=== PATIENT | female | born 1990 | race Caucasian/White ===

== ENCOUNTER 2017-03-13 09:02 | Emergency (ER) | payer BC ==
[2017-03-13 09:22] VITALS: BP 141/81
[2017-03-13] MEDS ORDERED: Cyclobenzaprine TAB* 10 MG PO ONE (10:15)
[2017-03-13] MEDS ORDERED: traMADol TAB* 50 MG PO ONE (10:15)
--- NOTE | 2017-03-13 10:15 | UC ---
Shoulder Pain HPI - HPI Summary HPI Summary: right shoulder and neck pain had an x-ray 2 years ago dx with calcific tendonitis resolved with physical therapy---no injury just awoke with the pain - History of Current Complaint Hx Obtained From: Patient Hx Last Menstrual Period: pt on mirena and states not getting a menses ?: No Onset/Duration: Sudden Onset Timing: Constant Severity Initially: Moderate Severity Currently: Moderate Location Of Pain: Is Discrete @ - right shoulder and above right scapula Pain Intensity: 8 Pain Scale Used: 0-10 Numeric Character: Aching, Throbbing, Spasmodic, Stiffness Aggravating Factor(s): Movement Alleviating Factor(s): Nothing Associated Signs And Symptoms: Positive: Negative Related History: Dominant Hand Right <Emma Hughes - Last Filed: 03/13/17 15:27> <Michelle Mcgowan - Last Filed: 03/14/17 08:30> - History of Current Complaint Chief Complaint: UCUpperExtremity Stated Complaint: IMMOBILE R SHOULDER Time Seen by Provider: 03/13/17 10:05 - Allergies/Home Medications Allergies/Adverse Reactions: Allergies Allergy/AdvReac Type Severity Reaction Status Date / Time No Known Allergies Allergy Verified 03/13/17 09:22 Home Medications: Home Medications Ibuprofen [Ibuprofen 200 MG] 800 mg PO PRN 03/13/17 [History] PMH/Surg Hx/FS Hx/Imm Hx Previously Healthy: Yes Other History Of: Negative For: Anticoagulant Therapy - Surgical History Surgical History: None - Family History Known Family History: Positive: None - Social History Occupation: Employed Full-time Lives: With Family Alcohol Use: None Substance Use Type: None Smoking Status (MU): Light Every Day Tobacco Smoker Type: Cigarettes Amount Used/How Often: < 1/2 PPD Length of Time of Smoking/Using Tobacco: since age 18 Have You Smoked in the Last Year: Yes - Immunization History Most Recent Influenza Vaccination: 2015 season Most Recent Tetanus Shot: 10/26/13 Most Recent Pneumonia Vaccination: n/a <Emma Hughes - Last Filed: 03/13/17 15:27> Review of Systems Constitutional: Negative Skin: Negative Eyes: Negative ENT: Negative Respiratory: Negative Cardiovascular: Negative Gastrointestinal: Negative Genitourinary: Negative Motor: Negative Neurovascular: Negative Musculoskeletal: Negative, Arthralgia - right shoulder, Decreased ROM - movement in all planes of movememnt Neurological: Negative Psychological: Negative Is Patient Immunocompromised?: No All Other Systems Reviewed And Are Negative: Yes <Emma Hughes - Last Filed: 03/13/17 15:27> Physical Exam Triage Information Reviewed: Yes Appearance: Well-Appearing, Pain Distress, Obese Vital Signs: Initial Vital Signs Temp 97.9 F 03/13/17 09:15 Pulse 80 03/13/17 09:15 Resp 16 03/13/17 09:15 BP 141/81 03/13/17 09:15 Pulse Ox 100 03/13/17 09:15 Vital Signs Reviewed: Yes Eye Exam: Normal Eyes: Positive: Conjunctiva Clear ENT Exam: Normal ENT: Positive: Normal ENT inspection, Hearing grossly normal, Pharynx normal. Negative: Nasal congestion, Nasal drainage, Trismus, Muffled voice, Hoarse voice , Dental tenderness, Sinus tenderness Dental Exam: Normal Neck exam: Normal Neck: Positive: Supple, Nontender, No Lymphadenopathy Respiratory Exam: Normal Respiratory: Positive: Chest non-tender, Lungs clear, Normal breath sounds, No respiratory distress, No accessory muscle use Cardiovascular Exam: Normal Cardiovascular: Positive: RRR, Pulses Normal, Brisk Capillary Refill Musculoskeletal Exam: Other Musculoskeletal: Positive: No Edema, Strength Limited @, ROM Limited @ Neurological Exam: Normal Neurological: Positive: Alert, Muscle Tone Normal Psychological Exam: Normal Psychological: Positive: Normal Response To Family Skin Exam: Normal <Emma Hughes - Last Filed: 03/13/17 15:27> Vital Signs: Initial Vital Signs Temp 97.9 F 03/13/17 09:15 Pulse 80 03/13/17 09:15 Resp 16 03/13/17 09:15 BP 141/81 03/13/17 09:15 Pulse Ox 100 03/13/17 09:15 <Michelle Mcgowan - Last Filed: 03/14/17 08:30> Shoulder Course/Dx - Course Assessment/Plan: pain med muscle relaxer, warm compress gentle exercise follow with pcp prn - Differential Dx/Diagnosis Provider Diagnoses: right neck strain, nicotine dependent, high blod pressure without diagnosis of hypertension <Emma Hughes - Last Filed: 03/13/17 15:27> Discharge <Emma Hughes - Last Filed: 03/13/17 15:27> <Michelle Mcgowan - Last Filed: 03/14/17 08:30> - Discharge Plan Condition: Stable Disposition: HOME Prescriptions: Cyclobenzaprine TAB* [Flexeril 10 MG TAB*] 10 mg PO TID PRN #15 tab PRN Reason: muscle pain/spasm traMADol TAB* [Ultram*] 25 mg PO Q6HR PRN #16 tab MDD 4 PRN Reason: pain not relieved by ibuprofen Patient Education Materials: How to Stop Smoking (ED), Spasmodic Torticollis ( ED), Hypertension (ED) Forms: *Work Release Referrals: Rodolfo Wilson MD [Primary Care Provider] - 2 Days Attestation Statement User Type: Provider - I was available for consult. This patient was seen by the RENA. The patient was not presented to, seen by, or examined by me. -Ljj <Michelle Mcgowan - Last Filed: 03/14/17 08:30>
== END 2017-03-13 10:52 | disposition home or self-care (01) ==
LOC: UCEAST 09:02
DX: S16.1XXA Strain of muscle, fascia and tendon at neck level, initial encounter (principal); R03.0 Elevated blood-pressure reading, without diagnosis of hypertension; F17.210 Nicotine dependence, cigarettes, uncomplicated; X58.XXXA Exposure to other specified factors, initial encounter
CPT/HCPCS: 99212; A9270-GY; G0463

== ENCOUNTER 2017-05-28 08:50 | Emergency (ER) | payer BC ==
[2017-05-28 09:10] VITALS: BP 149/78
--- NOTE | 2017-05-28 09:27 | UC ---
Respiratory Complaint HPI - HPI Summary HPI Summary: 2 WEEKS OF COUGH AND NASAL CONGESTION. YESTERDAY SX WORSENED. DEVELOPED HERNANDEZ, NAUSEA, SINUS PRESSURE, FEVER 100.3, CHILLS. - History of Current Complaint Stated Complaint: CHILLS SINUS ISSUE HEADACHE Time Seen by Provider: 05/28/17 09:00 Hx Obtained From: Patient Hx Last Menstrual Period: iud Onset/Duration: Gradual Onset, Lasting Weeks, Still Present Timing: Constant Severity Initially: Moderate Severity Currently: Moderate Pain Intensity: 0 Pain Scale Used: 0-10 Numeric Character: Cough: Nonproductive Aggravating Factors: Nothing Alleviating Factors: Nothing Associated Signs And Symptoms: Positive: Fever, Chills, URI, Nasal Congestion, Sinus Discomfort. Negative: Wheezing - Allergies/Home Medications Allergies/Adverse Reactions: Allergies Allergy/AdvReac Type Severity Reaction Status Date / Time Amoxicillin [From Augmentin] Allergy Itching Verified 05/28/17 09:02 Clavulanic Acid Allergy Itching Verified 05/28/17 09:02 [From Augmentin] Home Medications: Home Medications Escitalopram Oxalate [Lexapro 10 mg] 10 mg PO QPM 05/28/17 [History Confirmed ] Esomeprazole Magnesium [Heartburn Treatment 24 Ho] 20 mg PO QAM 05/28/17 [ History Confirmed 05/28/17] PMH/Surg Hx/FS Hx/Imm Hx Psychological History: Anxiety, Post Traumatic Stress Disorder Other History Of: Negative For: Anticoagulant Therapy - Surgical History Surgical History: None - Family History Known Family History: Positive: Hypertension - Social History Alcohol Use: None Substance Use Type: None Smoking Status (MU): Light Every Day Tobacco Smoker Type: Cigarettes Amount Used/How Often: < 1/2 PPD Length of Time of Smoking/Using Tobacco: since age 18 Have You Smoked in the Last Year: Yes - Immunization History Most Recent Influenza Vaccination: season Most Recent Tetanus Shot: 10/26/13 Most Recent Pneumonia Vaccination: n/a Review of Systems Constitutional: Fever, Chills, Fatigue ENT: Sore Throat, Nasal Discharge Respiratory: Cough Cardiovascular: Negative Gastrointestinal: Negative Musculoskeletal: Myalgia Neurological: Headache All Other Systems Reviewed And Are Negative: Yes Physical Exam Triage Information Reviewed: Yes Appearance: Well-Appearing, No Pain Distress, Well-Nourished Vital Signs: Initial Vital Signs Temp 98.2 F 05/28/17 09:05 Pulse 83 01/17/18 09:05 Resp 16 05/28/17 09:05 BP 149/78 05/28/17 09:05 Pulse Ox 98 05/28/17 09:05 Vital Signs Reviewed: Yes Eyes: Positive: Conjunctiva Clear ENT: Positive: Hearing grossly normal, Pharyngeal erythema, TMs normal, Tonsillar swelling - TONSIL STONE RIGHT TONSIL Neck: Positive: Supple, Nontender, No Lymphadenopathy Respiratory Exam: Normal Cardiovascular Exam: Normal Abdomen Description: Positive: Soft Musculoskeletal: Positive: No Edema Neurological: Positive: Alert Psychological: Positive: Normal Response To Family, Age Appropriate Behavior Skin: Negative: rashes UC Diagnostic Evaluation - Laboratory O2 Sat by Pulse Oximetry: 98 Diagnostic Studies Comment: RAPID INFLUENZA NEGATIVE Respiratory Course/Dx - Differential Dx/Diagnosis Provider Diagnoses: ACUTE SINUSITIS Discharge - Discharge Plan Condition: Stable Disposition: HOME Prescriptions: Doxycycline (Monohydrate) [Doxycycline Monohydrate] 1 cap PO BID #20 cap Patient Education Materials: Sinusitis (ED) Forms: *Work Release Referrals: Ana Maria TATUM,Letty Osawld [Physician Machine Stacker] - If Needed Additional Instructions: FLU TEST NEGATIVE. WILL COVER FOR SINUS INFECTION WITH ANTIBIOTICS. FOLLOW-UP WITH YOUR PCP IF YOU ARE NOT IMPROVING EXPECTED.
== END 2017-05-28 09:44 | disposition home or self-care (01) ==
LOC: UCEAST 08:50
DX: J01.90 Acute sinusitis, unspecified (principal); Z88.1 Allergy status to other antibiotic agents; F41.9 Anxiety disorder, unspecified; F43.10 Post-traumatic stress disorder, unspecified; F17.210 Nicotine dependence, cigarettes, uncomplicated
CPT/HCPCS: 87502; 99212; G0463

== ENCOUNTER 2017-10-06 11:11 | Emergency (ER) | payer BC ==
[2017-10-06 12:17] VITALS: BP 142/79
--- NOTE | 2017-10-06 12:23 | UC ---
Neck Pain HPI - HPI Summary HPI Summary: 27 yo female presents with neck and shoulder pain for the last 2 days. She tells me that she has a history of reocurring muscle spasms in her neck and shoulders. In the past has had to undergo many months of physical therapy to improve this. Currently is seeing a chiropractor and he has ordered cervical XRs which show a reversal of the normal cervical lordosis. Pt tells me that 2 days ago she "woke up" with this spasm in her neck and shoulder. Has been taking ibuprofen with no relief. Denies fever, chills, headache, dizziness, recent illness, numbness, tingling, or injury. - History of Current Complaint Chief Complaint: UCUpperExtremity Stated Complaint: L SIDED NECK AND SHOULDER PAIN Time Seen by Provider: 10/06/17 12:23 Hx Obtained From: Patient Hx Last Menstrual Period: murina Onset/Duration Of Injury/Symptoms: Days Mechanism Of Injury: No Known Trauma Timing: Constant Onset/Duration: Sudden Onset Severity: Severe Pain Intensity: 10 Pain Scale Used: 0-10 Numeric - Allergies/Home Medications Allergies/Adverse Reactions: Allergies Allergy/AdvReac Type Severity Reaction Status Date / Time amoxicillin [From Augmentin] Allergy Itching Verified 10/06/17 12:17 clavulanic acid Allergy Itching Verified 10/06/17 12:17 [From Augmentin] Home Medications: Home Medications Acetaminophen [Acetaminophen Extra Strength] 1,000 mg PO Q6H PRN 10/06/17 [ History Confirmed 10/06/17] Esomeprazole Magnesium [Nexium 24Hr] 20 mg PO DAILY 10/06/17 [History Confirmed 10/06/17] Fluticasone NASAL SPRAY 50MCG* [Flonase NASAL SPRAY 50MCG*] 2 spray BOTH NARES DAILY PRN 10/06/17 [History Confirmed 10/06/17] PMH/Surg Hx/FS Hx/Imm Hx Previously Healthy: Yes GI/ History: Gastroesophageal Reflux Psychological History: Anxiety Other History Of: Negative For: Anticoagulant Therapy - Surgical History Surgical History: None - Family History Known Family History: Positive: Hypertension, Diabetes - Social History Occupation: Employed Full-time Lives: With Family Alcohol Use: None Substance Use Type: None Smoking Status (MU): Light Every Day Tobacco Smoker Type: Cigarettes Amount Used/How Often: 7 sig/day Length of Time of Smoking/Using Tobacco: since age 18 Have You Smoked in the Last Year: Yes - Immunization History Most Recent Influenza Vaccination: season Most Recent Tetanus Shot: 10/26/13 Most Recent Pneumonia Vaccination: n/a Review Of Systems Constitutional: Positive: Negative Skin: Positive: Negative Eyes: Positive: Negative ENT: Positive: Negative Respiratory: Positive: Negative Cardiovascular: Positive: Negative Musculoskeletal: Positive: Other: - Neck pain. Shoulder pain. Neurological: Positive: Negative Psychological: Positive: Negative All Other Systems Reviewed And Are Negative: Yes Physical Exam - Summary Physical Exam Summary: GENERAL: NAD. Obese SKIN: No rashes, sores, or wounds. HEENT: Head: AT/NC Eyes: PERRLA. EOM intact. Conjunctiva clear without inflammation or discharge. Ears: Hearing grossly normal. TMs intact, no bulging, erythema, or edema. Nose: Nasal mucosa pink and moist. NTTP maxillary and frontal sinus. Throat: Posterior oropharynx without exudates, erythema, or tonsillar enlargement. Uvula midline. NECK: Supple. Nontender. No lymphadenopathy. CHEST: CTAB. No r/r/w. No accessory muscle use. Breathing comfortably and in no distress. CV: RRR. Without m/r/g. Pulses intact. Brisk cap refill. MSK: FROM in B/L UEs, pain in neck with flexion of left shoulder. Strength 4/5 on left due to pain. Marina Porter strength intact b/l. Neck has decreased ROM in all directions due to posterior pain. TTP over trapezius muscle. No vertebral tenderness. Negative brudzinski and Kernig sign. NEURO: A&Ox3. 3 word recall, remote, recent memory, ability to follow 2-step directions, and attention intact. CN II-XII grossly intact. Fuczaw-bu-lsqg are intact. Gait with normal base. Romberg: maintains balance, no pronator drift. Sensations intact C4-T1 B/L UEs. PSYCH: Age appropriate behavior. Triage Information Reviewed: Yes Vital Signs: Initial Vital Signs Temp 97.5 F 10/06/17 12:12 Pulse 75 10/06/17 12:12 Resp 16 10/06/17 12:12 BP 142/79 10/06/17 12:12 Pulse Ox 99 10/06/17 12:12 Neck Pain Course/Dx - Course Course Of Treatment: Suspect muscle spasm of trapezius. Pt was offered toradol IM in clinic today buy declined due to fear of needles. Will rx for flexeril and mobic - advised not to take NSAIDs with this. Referral to physical therapy. She is also requesting a referral to a neurosurgeon or orthopedic doctor as she has had many issues with her neck for years. - Differential Dx/Diagnosis Provider Diagnoses: Neck spasm Discharge - Sign-Out/Discharge Documenting (check all that apply): Discharge/Admit/Transfer - Discharge Plan Condition: Stable Disposition: HOME Prescriptions: Cyclobenzaprine TAB* [Flexeril 10 MG TAB*] 10 mg PO TID PRN #21 tab PRN Reason: Pain Meloxicam [Mobic] 7.5 mg PO BID #14 tab Patient Education Materials: Muscle Spasm (ED) Forms: *Work Release Referrals: Rodolfo Wilson MD [Primary Care Provider] - Ken Chavez MD [Medical Doctor] - As Soon As Possible Additional Instructions: If you develop a fever, shortness of breath, chest pain, new or worsening symptoms - please call your PCP or go to the ED. 1) DO NOT TAKE ibuprofen/advil or ther NSAIDs while taking meloxicam as these medications are related and may interact. 2) Please schedule a follow up with Neurosurgery and your PCP as soon as possible 3) Please call Physical therapy to schedule an appointment - Billing Disposition and Condition Condition: STABLE Disposition: HOME
== END 2017-10-06 12:47 | disposition home or self-care (01) ==
LOC: UCEAST 11:11
DX: M62.838 Other muscle spasm (principal); K21.9 Gastro-esophageal reflux disease without esophagitis; F41.9 Anxiety disorder, unspecified; Z88.1 Allergy status to other antibiotic agents; Z88.0 Allergy status to penicillin; F17.210 Nicotine dependence, cigarettes, uncomplicated
CPT/HCPCS: 99211; G0463

== ENCOUNTER 2017-12-02 17:23 | Emergency (ER) | payer BC ==
--- OUTSIDE RECORDS SUMMARY | 2017-12-02 17:27 | XMS REPORT ---
:1990 External Reference #:[id number] Author Organization [facility] Address [address] [place] [address] [place] [address] Phone [phone] Care Team Providers Name Role Phone Rodolfo Wilson MD Primary Care Physician Unavailable Payers Type Date Identification Numbers Payment Provider Subscriber Commercial Policy Number: [id number] [employer] Eddie Mak PayID: [id number] [address] [address] [place] [address] Problems Description No Information Family History Date Family Member(s) Problem(s) Comments General No Current Problems Siblings 4 Social History Type Date Description Comments Marital Status Lives With Occupation Currently Working Out right now due to neck pain Insurance [employer] ETOH Use Denies alcohol use Smoking Patient is a current smoker, smokes every day Recreational Drug Use Denies Drug Use Smoking Light tobacco smoker (10 or fewer cigarettes/day) Daily Caffeine Does Not Consume Caffeine Exercise Type/Frequency Does not exercise Allergies, Adverse Reactions, Alerts Date Description Reaction Status Severity Comments 10/08/2017 Augmentin active Medications Medication Date Status Form Strength Qnty SIG Indications Ordering Provider Cyclobenzaprine HCL Active Tablets 10mg 120ta Take one M50.30 Stevie /0000 bs tablet by blayne Silvestre up M.D. to three times daily for muscle spasm. Escitalopram Oxalate Active Tablets 10mg 1 qd Jean-H / Letty hennessy PA Esomeprazole Active Capsules 20mg 1 qd Jean-H Magnesium 0000 Letty Valdovinos PA Lorazepam Active Tablets 0.5mg 1/2 prn Jean-H Letty hennessy PA IUD Active Unknown /0000 Methylprednisolone 10/08 Hx TBPK 4mg 1pack take as M54.12 directed Konrad, - M.D. 10/22 Lorazepam 10/08 Hx Tablets 2mg 2tabs Take one M54.12 tablet 30 Walford, - minutes M.D. 10/22 prior to MRI, may repeat at time of MRI. Tramadol HCL Hx Tablets 50mg 30tab 1-2 Jean-H /0000 s tablets ektor, - by mouth Letty Arevalo, 11/24 every 6 hours as needed pain Meloxicam Hx Tablets 7.5mg 45tab take one Unknown /0000 s tab twice - daily as 11/24 needed for pain, avoid other nsaids Vital Signs Date Vital Result Comment 11/24/2017 Height 63 inches 5'3" Weight 287.00 lb Heart Rate 88 /min BP Systolic Standing 118 mmHg BP Diastolic Standing 72 mmHg Respiratory Rate 16 /min Body Temperature 98.1 F Pain Level 0 BMI (Body Mass Index) 50.8 kg/m2 10/22/2017 Height 63 inches 5'3" Weight 278.00 lb BP Systolic Sitting 124 mmHg BP Diastolic Sitting 82 mmHg BMI (Body Mass Index) 49.2 kg/m2 10/08/2017 Height 63 inches 5'3" Weight 278.00 lb BP Systolic Sitting 130 mmHg BP Diastolic Sitting 80 mmHg Pain Level 10 BMI (Body Mass Index) 49.2 kg/m2 Results Description No Information Procedures Description No Information Encounters Type Date Location Provider CPT E/M Dx Office Visit 10/22/2017 2:45p [facility] Jara PA-C [id number] M50.222 [facility] M50.30 Office Visit 10/08/2017 2:00p [facility] Celestina Jara PA-C [id number] M54.12 Plan of Care No Information Available
[2017-12-02 17:35] VITALS: BP 127/84
--- NOTE | 2017-12-02 17:54 | UC ---
Complaint Female HPI - HPI Summary HPI Summary: This is sadia Dale documenting for attending Kenny Steve MD. This patient is a 27 year old F presenting to [facility] with a chief complaint of burning dysuria since yesterday. The patient rates the pain 4/10 in severity. Patient reports white vaginal discharge. Patient denies abd pain, flank pain, or fever. Pt has an IUD and a long-term partner, she is not worried about STIs. - History Of Current Complaint Chief Complaint: UCGU Stated Complaint: BURNING URINATION Time Seen by Provider: 12/02/17 17:37 Hx Obtained From: Patient Hx Last Menstrual Period: 3 years ago Onset/Duration: Sudden Onset Timing: Constant Severity Initially: Moderate Severity Currently: Moderate Pain Intensity: 4 Pain Scale Used: 0-10 Numeric Character: Sharp, Burning Aggravating Factor(s): Urination Associated Signs And Symptoms: Negative: Fever - Allergies/Home Medications Allergies/Adverse Reactions: Allergies Allergy/AdvReac Type Severity Reaction Status Date / Time amoxicillin [From Augmentin] Allergy Itching Verified 12/02/17 17:35 clavulanic acid Allergy Itching Verified 12/02/17 17:35 [From Augmentin] PMH/Surg Hx/FS Hx/Imm Hx Other History Of: Negative For: Anticoagulant Therapy - Surgical History Surgical History: None Surgery Procedure, Year, and Place: DENIES - Family History Known Family History: Positive: Hypertension, Diabetes - Social History Alcohol Use: None Substance Use Type: None Smoking Status (MU): Light Every Day Tobacco Smoker Type: Cigarettes Amount Used/How Often: 7 sig/day Length of Time of Smoking/Using Tobacco: since age 18 Have You Smoked in the Last Year: Yes - Immunization History Most Recent Influenza Vaccination: season Most Recent Tetanus Shot: 10/26/13 Most Recent Pneumonia Vaccination: n/a Review of Systems Constitutional: Negative Skin: Negative Eyes: Negative ENT: Negative Respiratory: Negative Cardiovascular: Negative Gastrointestinal: Negative Genitourinary: Dysuria, Vaginal/Penile Discharge - white Motor: Negative Neurovascular: Negative Musculoskeletal: Negative Neurological: Negative Psychological: Negative Is Patient Immunocompromised?: No All Other Systems Reviewed And Are Negative: Yes Physical Exam - Summary Physical Exam Summary: General: well-appearing, no pain distress Skin: warm, color reflects adequate perfusion, dry Head: normal Eyes: EOMI, COLE ENT: normal Neck: supple, nontender Respiratory: CTA, breath sounds present Cardiovascular: RRR Abdomen: soft, nontender Bowel: present Musculoskeletal: normal, strength/ROM intact Neurological: sensory/motor intact, A&O x3 Psychological: affect/mood appropriate : no rash. IUD string in place. White discharge, non-clumping. Triage Information Reviewed: Yes Vital Signs: Initial Vital Signs Temp 98.1 F 12/02/17 17:29 Pulse 90 12/02/17 17:29 Resp 18 12/02/17 17:29 BP 127/84 12/02/17 17:29 Pulse Ox 99 12/02/17 17:29 Vital Signs Reviewed: Yes Complaint Female Dx - Course Course Of Treatment: UA WITH LEUKOCYTES. WHITE DISCHARGE WITH PELVIC EXAM. AT THIS TIME, WILL TREAT POSSIBLE UTI WITH BACTRIM, YEAST INFECTION WITH DIFLUCAN AND BV WITH METRO GEL. PELVIC RESULTS AND URINE CX RESULTS PENDING AND CAN MODIFY TREATMENT BASED ON RESULTS. F/U PMD; RECHECK SOONER IF WORSE. - Differential Dx/Diagnosis Provider Diagnoses: DYSURIA. VAGINITIS Discharge - Sign-Out/Discharge Documenting (check all that apply): Patient Departure - Discharge Plan Condition: Stable Disposition: HOME Prescriptions: Fluconazole 150 MG (NF) [Diflucan 150 mg (NF)] 150 mg PO ONCE #2 tab metroNIDAZOLE [Metrogel] 1 applic VAGINAL BID #10 gel.w.pump Sulfamethox/Trimethoprim DS* [Bactrim DS 800/160 TAB*] 1 tab PO BID #14 tab Patient Education Materials: Vaginitis (ED), Dysuria (ED) Referrals: Rodolfo Wilson MD [Primary Care Provider] - Additional Instructions: FOLLOW UP WITH YOUR DOCTOR IF NOT COMPLETELY IMPROVED. GET RECHECKED FOR ANY WORSENING OF YOUR CONDITION OR QUESTIONS OR CONCERNS. - Billing Disposition and Condition Condition: STABLE Disposition: Home
--- NOTE | 2017-12-03 15:49 | PN ---
Progress Note - Progress Note Date of Service: 12/03/17 Note: Patient currently being treated with clindamycin and Diflucan. Vaginal cultures positive for candidiasis. No further action required.
== END 2017-12-02 18:20 | disposition home or self-care (01) ==
LOC: UCEAST 17:23
DX: N76.0 Acute vaginitis (principal); R30.0 Dysuria; F17.210 Nicotine dependence, cigarettes, uncomplicated; Z88.0 Allergy status to penicillin; Z97.5 Presence of (intrauterine) contraceptive device
CPT/HCPCS: 81003; 84702; 87086; 87480; 87491; 87510; 87591; 87661; 99212; G0463